=== PATIENT | male | born 1985 | race Caucasian/White ===

== ENCOUNTER 2016-08-13 11:19 | Emergency (ER) | payer SELFPAY ==
[~2016-08-13] VITALS: Ht 182.9 cm; Wt 89.8 kg
[~2016-08-13 11:19] MED LIST: ALBU0.0965 INH; METF100028 PO; SITA25TA3 PO
[2016-08-13 11:21] VITALS: BP 140/88
[2016-08-13] MEDS ORDERED: LOSA50TA1 PO (11:33)
--- NOTE | 2016-08-13 11:45 | NUR ---
URINE COLLECTED IN TRIAGE.
--- NOTE | 2016-08-13 11:52 | NUR ---
Patient ambulated to bed 04.
[2016-08-13] MEDS ORDERED: NACL 0.9% 1,000 ML IV ONE (12:05)
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
--- NOTE | 2016-08-13 12:20 | NUR ---
Dr. Shah evaluating patient at bedside.
[2016-08-13] MEDS ORDERED: KETOROLAC 30 MG/ML VIAL IVP ONE (12:30)
[2016-08-13 12:31] LABS: HEMATOCRIT 46.6 % (36-52); HEMOGLOBIN 15.5 g/dL (12.0-18.0); MEAN CORPUSCULAR HEMOGLOBIN 30 pg (27-31); MEAN CORPUSCULAR HGB CONC 33 g/dL (33-37); MEAN CORPUSCULAR VOLUME 91 fL (80-94); PLATELET COUNT (AUTO) 395 K/uL (140-450); RED CELL DISTRIBUTION WIDTH 12.1 % (11.6-13.7); WHITE BLOOD COUNT (AUTO) 7.8 K/uL (4.8-10.8)
[2016-08-13 12:34] LABS: APPEARANCE,URINE CLEAR (CLEAR); BILIRUBIN,URINE 2+ (NEGATIVE); BLOOD, URINE NEGATIVE (NEGATIVE); COLOR,URINE YELLOW (YELLOW); LEUKOCYTE ESTERASE ,URINE NEGATIVE (NEGATIVE); NITRITE, URINE NEGATIVE (NEGATIVE); PROTEIN,URINE NEGATIVE (NEGATIVE); UGLUCOSE 3+ (NEGATIVE)
[2016-08-13 12:35] LABS: ANION GAP 12.5 (8-16); CALCIUM 8.2 mg/dL (8.5-10.1); CARBON DIOXIDE 28.2 mmol/L (21-32); CREATININE 0.8 mg/dL (0.7-1.3); POTASSIUM 3.7 mmol/L (3.5-5.1)
--- NOTE | 2016-08-13 12:40 | NUR ---
AAO PT TAKEN TO CT FOR THE HEAD VIA WHEEL CHAIR BY INSTRUCTOR KNITTING
[2016-08-13 12:41] LABS: ALBUMIN 3.9 g/dL (3.4-5.0); TOTAL BILIRUBIN 0.5 mg/dL (0.0-1.0); TOTAL PROTEIN, SERUM 7.3 g/dL (6.4-8.2)
[2016-08-13 12:42] LABS: LYMPHOCYTES % (MANUAL) 27 % (20-46); MONOCYTES % (MANUAL) 5 % (5-12); NEUTROPHILS % (MANUAL) 68 (43-65)
[2016-08-13 12:43] LABS: PLATELET ESTIMATE ADEQUATE
--- NOTE | 2016-08-13 12:48 | NUR ---
Patient back from CT via wheelchair per tech.
[2016-08-13 12:59] LABS: BACTERIA,URINE None Seen /HPF (None Seen); ICTOTEST NEGATIVE (NEGATIVE); RBC,URINE NONE SEEN /HPF (0-5); SQUAMOUS EPITHELIAL CELL,UR 0-3 (FEW) /LPF (0-3 (FEW)); WBC,URINE NONE SEEN /HPF (0-5)
[2016-08-13 14:05] VITALS: BP 125/71
== END 2016-08-13 14:05 | disposition home or self-care (01) ==
LOC: MED 11:19
DX: S00.93XA Contusion of unspecified part of head, initial encounter (principal); T14.8 Other injury of unspecified body region; E11.9 Type 2 diabetes mellitus without complications; R03.0 Elevated blood-pressure reading, without diagnosis of hypertension; V43.52XA Car driver injured in collision with other type car in traffic accident, initial encounter; Y93.I9 Activity, other involving external motion; Y92.488 Other paved roadways as the place of occurrence of the external cause; Y99.8 Other external cause status
CPT/HCPCS: 36415; 70450; 80053; 81001; 82948; 85025; 96361; 96374; 99285; J1885; J7030

== ENCOUNTER 2018-05-21 04:35 | Emergency (ER) | payer OTHER ==
[~2018-05-21] VITALS: Ht 182.9 cm; Wt 87.1 kg
[~2018-05-21 04:35] MED LIST changes: +LOSA50TA1 PO
[2018-05-21 04:40] VITALS: BP 124/77
--- NOTE | 2018-05-21 04:40 | NUR ---
TO BED # 04 AMBULATORY
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
[2018-05-21] MEDS ORDERED: ACETAMINOPHEN 325 MG TAB PO ONE (05:10)
[2018-05-21] MEDS ORDERED: KETOROLAC 30 MG/ML VIAL IM ONE (05:10)
--- NOTE | 2018-05-21 05:38 | NUR ---
PT RETURNED FROM CT.
[2018-05-21 06:04] VITALS: BP 110/76
--- NOTE | 2018-05-21 06:04 | NUR ---
Patient discharged with v/s stable. Written and verbal after care instructions given and explained. Patient alert, oriented and verbalized understanding of instructions. Ambulatory with steady gait. All questions addressed prior to discharge. ID band removed. Patient advised to follow up with PMD. Rx of Motrin and Methocarbamol given. Patient educated on indication of medication including possible reaction and side effects. Opportunity to ask questions provided and answered.
== END 2018-05-21 06:04 | disposition home or self-care (01) ==
LOC: MED 04:35
DX: M54.12 Radiculopathy, cervical region (principal); M25.511 Pain in right shoulder; J45.909 Unspecified asthma, uncomplicated; E11.9 Type 2 diabetes mellitus without complications; Z79.84 Long term (current) use of oral hypoglycemic drugs; Z79.899 Other long term (current) drug therapy
CPT/HCPCS: 72125; 73030; 93005; 96372; 99284; J1885

== ENCOUNTER 2018-10-22 10:51 | Emergency (ER) | payer OTHER ==
[~2018-10-22] VITALS: Ht 180.3 cm; Wt 90.7 kg
[2018-10-22 10:52] VITALS: BP 136/97
--- NOTE | 2018-10-22 10:52 | NUR ---
PT PLACED IN CHAIR D
[2018-10-22] MEDS ORDERED: IBUPROFEN 800 MG TAB PO ONE (11:10)
--- NOTE | 2018-10-22 11:16 | NUR ---
PT TAKEN FOR XRAY.
--- NOTE | 2018-10-22 11:19 | NUR ---
PT BACK FROM XRAY.
[2018-10-22 11:27] VITALS: BP 136/97
== END 2018-10-22 11:27 ==
LOC: MED 10:51
DX: R07.89 Other chest pain (principal); J45.909 Unspecified asthma, uncomplicated; E11.9 Type 2 diabetes mellitus without complications; Z79.899 Other long term (current) drug therapy; Z79.51 Long term (current) use of inhaled steroids; V89.2XXA Person injured in unspecified motor-vehicle accident, traffic, initial encounter; Y93.89 Activity, other specified; Y92.410 Unspecified street and highway as the place of occurrence of the external cause; Y99.8 Other external cause status
CPT/HCPCS: 71045; 99283

== ENCOUNTER 2018-12-25 12:25 | Observation (INO) | payer OTHER ==
[~2018-12-25] VITALS: Ht 182.9 cm; Wt 80.7 kg
[2018-12-25 12:57] VITALS: BP 139/77
--- NOTE | 2018-12-25 13:00 | NUR ---
PT TAKEN TO BED 2.
--- NOTE | 2018-12-25 13:19 | NUR ---
33/M C/O LT CHEST PAIN X2 DAYS, WORSE TODAY AND CONSTANT. DENIES SUBSTANCE USE. STATES HAS HAD SIMILAR CP IN THE PAST BUT NEVER CONSTANT AND THIS SEVERE. STATES N/V AND SOB. 98% RA; PLACED ON 2L NC FOR C/O SOB. RRR. LUNGS CTAB. HX DENIES
--- NOTE | 2018-12-25 13:37 | NUR ---
PT STATES DO NOT GIVE INFORMATION TO EX- OVER THE PHONE. STATES HE HAS BEEN HAVING PROBLEMS WITH HER AND IT HAS BEEN TRIGGERING ANXIETY AND CP SYMPTOMS.
--- NOTE | 2018-12-25 13:57 | NUR ---
WINE MASTER AT BEDSIDE.
--- NOTE | 2018-12-25 14:00 | NUR ---
PT STATES HIS PAIN HAS DECREASED. STATES HE FEELS BETTER WITH THE O2 NC.
[2018-12-25] MEDS ORDERED: NACL 0.9% 1,000 ML IV SCH (14:23)
[2018-12-25] MEDS ORDERED: methylPREDNISolone SS 125 MG/2 ML VIAL IVP ONE (14:25)
[2018-12-25] MEDS ORDERED: AZITHROMYCIN 500 MG in DEXTROSE 5% 250 ML IV ONE (14:25)
[2018-12-25] MEDS ORDERED: ALBUTEROL SULFATE/IPRATROPIU 3 ML SOL IH ONE (14:25)
[2018-12-25] MEDS ORDERED: diphenhydrAMINE 50 MG/ML VIAL IVP ONE (14:25)
--- NOTE | 2018-12-25 14:39 | NUR ---
RT AT BEDSIDE
[2018-12-25 14:56] LABS: MAGNESIUM 2.2 mg/dL (1.8-2.4)
[2018-12-25] MEDS ORDERED: AZITHROMYCIN 500 MG INJ VIAL IV ONE (14:58)
[2018-12-25 15:03] LABS: PROTHROMBIN TIME 9.4 secs (10.8-13.4)
--- NOTE | 2018-12-25 15:17 | NUR ---
REMINDED PT THAT WE STILL NEED URINE SAMPLE. PT VERBALIZED UNDERSTANDING AND STATED HE WOULD TRY.
[2018-12-25 15:18] LABS: BASOPHILS % (AUTO) 0.4 % (0.0-2.0); EOSINOPHILS % (AUTO) 0.2 % (0.0-4.0); HEMATOCRIT 44.7 % (36-52); HEMOGLOBIN 14.9 g/dL (12.0-18.0); LYMPHOCYTES # (AUTO) 1.8 K/uL (2.0-11.5); LYMPHOCYTES % (AUTO) 18.7 % (20.5-51.1); MEAN CORPUSCULAR HEMOGLOBIN 31 pg (27-31); MEAN CORPUSCULAR HGB CONC 33 g/dL (33-37); MEAN CORPUSCULAR VOLUME 92.7 fL (80-94); MONOCYTES # (AUTO) 0.7 K/uL (0.8-1.0); MONOCYTES % (AUTO) 7.3 % (1.7-9.3); NEUTROPHILS % (AUTO) 73.4 % (42.2-75.2); PLATELET COUNT (AUTO) 427 K/uL (140-450); RED BLOOD CELL COUNT(AUTO) 4.82 MIL/uL (4.20-6.10); WHITE BLOOD COUNT (AUTO) 9.5 K/uL (4.8-10.8)
[2018-12-25 15:29] LABS: PROTHROMBIN TIME 9.5 secs (10.8-13.4)
[2018-12-25 15:39] LABS: ANION GAP 11.7 (8-16); CARBON DIOXIDE 28.1 mmol/L (21-32); CREATININE 0.9 mg/dL (0.7-1.3); POTASSIUM 3.8 mmol/L (3.5-5.1)
[2018-12-25 15:52] LABS: ALBUMIN 3.7 g/dL (3.4-5.0)
--- NOTE | 2018-12-25 16:13 | NUR ---
PT STATES STILL UNABLE TO GIVE URINE SAMPLE BUT WILL CONTINUE TO TRY.
--- NOTE | 2018-12-25 16:22 | NUR ---
PT STATES HE STILL CAN'T PROVIDE URINE SAMPLE AT THIS TIME. REFUSED CATHETERIZATION FOR URINE. STATES HE NEEDS SOME MORE TIME.
--- NOTE | 2018-12-25 16:23 | NUR ---
SITTING UP IN BED, NAD, NOTED TO BE SCROLLING THROUGH CELLPHONE.
--- NOTE | 2018-12-25 17:00 | NUR ---
OBTAINED VOIDED URINE SAMPLE FROM PT.
[2018-12-25 17:03] LABS: TOTAL BILIRUBIN 0.8 mg/dL (0.0-1.0)
--- NOTE | 2018-12-25 18:08 | NUR ---
Patient will be admitted to care of DR. NICOLE. Admited to TELE. Will go to room 126B. Belongings list completed. Report to DAYANA HUA.
[2018-12-25 18:29] LABS: BARBITURATE, URINE NEGATIVE ng/ml (NEG <=200)
[2018-12-25 18:30] LABS: BENZODIAZEPINE, URINE NEGATIVE ng/mL (NEG <=200); CANNABINOID, URINE NEGATIVE ng/mL (NEG <=50); COCAINE, URINE NEGATIVE ng/mL (NEG <=300); OPIATE, URINE NEGATIVE ng/mL (NEG <=2000); PHENCYCLIDINE SCREEN,URINE NEGATIVE ng/mL (NEG <=25)
--- NOTE | 2018-12-25 18:37 | NUR ---
VITALS BP 124/78, HR 84, O2SAT 100% RA, RR 14, DENIES PAIN, PAGED DR NICOLE CONCRETE HOPPER OPERATOR FOR DR TEJADA FOR ORDERS.
[2018-12-25] MEDS ORDERED: ALBUTEROL SULFATE/IPRATROPIU 3 ML SOL IH PRN (18:45)
[2018-12-25 19:30] VITALS: BP 128/78
--- NOTE | 2018-12-25 19:30 | NUR ---
RECEIVED BEDSIDE REPORT FROM LI RN, PT STABLE NO DISTRESS NOTED, IV TO L FA 20G, PATENT, INTACT, SL, PT ON ROOM AIR, NO SOB NOTED, PT STATED HAVING TOLERABLE CHEST PAIN AT THIS MOMENT, INITIAL ASSESSMENT DONE, ALL SAFETY PRECAUTION MET, CALL LIGHT WITHIN REACH, WILL CONTINUE TO MONITOR.
--- NOTE | 2018-12-25 21:00 | NUR ---
PT C/O PAIN /10 ON THE CHEST THAT RADIATES TO L FINGERS FEELING TINGLING, NOTIFIED DR. BONNIE DR. STATED TO ORDER ASA 81MG DAILY AND TO GIVE ONE DOSE NOW, AND TO ORDER NORCO 5/325MG Q6H PRN PAIN. WILL PUT IN ORDERS AND CONTINUE WITH ORDERS.
--- NOTE | 2018-12-25 21:02 | NUR ---
PT RECEIVED ON RA WITH SP02 97% AND CLEAR BREATH SOUNDS. NO RESPIRATORY DISTRESS NOTED. PRN TX NOT GIVEN. WILL CONTINUE TO MONITOR PT
[2018-12-25] MEDS ORDERED: ECOTRIN 81 MG TABEC PO ONE (21:20)
[2018-12-25] MEDS: HYDROcodone/APAP 5/325 MG 1 TAB TAB PO PRN (22:10)
--- NOTE | 2018-12-25 22:10 | NUR ---
MEDICATION ADMINISTERED, PT TOLERATED WELL, NO DISTRESS NOTED, CALL LIGHT WITHIN REACH, WILL CONTINUE TO MONITOR.
[2018-12-26] VITALS: BP 119/65
--- NOTE | 2018-12-26 00:17 | NUR ---
PT SLEEPING, NO DISTRESS NOTED, V/S TAKEN, WNL, CALL LIGHT WITHIN REACH, WILL CONTINUE TO MONITOR.
[2018-12-26 04:00] VITALS: BP 111/61
--- NOTE | 2018-12-26 04:16 | NUR ---
CHECKED ON PT, PT SLEEPING, V/S TAKEN, WNL, CALL LIGHT WITHIN REACH, WILL CONTINUE TO MONITOR.
[2018-12-26 06:47] LABS: BASOPHILS % (AUTO) 0.1 % (0.0-2.0); HEMOGLOBIN 15.9 g/dL (12.0-18.0); LYMPHOCYTES # (AUTO) 1.3 K/uL (2.0-11.5); LYMPHOCYTES % (AUTO) 10.3 % (20.5-51.1); MEAN CORPUSCULAR HEMOGLOBIN 31 pg (27-31); MEAN CORPUSCULAR HGB CONC 33 g/dL (33-37); MONOCYTES # (AUTO) 0.6 K/uL (0.8-1.0); MONOCYTES % (AUTO) 4.9 % (1.7-9.3); NEUTROPHILS # (AUTO) 10.6 K/uL (1.8-7.7); NEUTROPHILS % (AUTO) 84.7 % (42.2-75.2); PLATELET COUNT (AUTO) 450 K/uL (140-450); RED BLOOD CELL COUNT(AUTO) 5.16 MIL/uL (4.20-6.10); WHITE BLOOD COUNT (AUTO) 12.5 K/uL (4.8-10.8)
[2018-12-26 06:55] LABS: ANION GAP 12.5 (8-16); CARBON DIOXIDE 26.6 mmol/L (21-32); CREATININE 0.7 mg/dL (0.7-1.3); POTASSIUM 5.1 mmol/L (3.5-5.1)
--- NOTE | 2018-12-26 07:05 | NUR ---
RECEIVE REPORT FROM PM NURSE, PT WAS ASLEEP BUT AWAKES WHEN NAME IS USED. PT IS STABLE WITHOUT SIGNS OF DISTRESS.
--- NOTE | 2018-12-26 07:16 | NUR ---
ENDORSED PT TO DAY SHIFT NURSE JERRY RN, PT STABLE, NO DISTRESS NOTED, CALL LIGHT WITHIN REACH.
[2018-12-26 08:00] VITALS: BP 115/75
[2018-12-26] MEDS: HYDROcodone/APAP 5/325 MG 1 TAB TAB PO PRN ×2 (08:04→20:39)
[2018-12-26] MEDS: ECOTRIN 81 MG TABEC PO SCH (08:05)
--- NOTE | 2018-12-26 09:18 | NUR ---
PT ON HIS CELLPHONE. PT WAS INFORMED ABOUT AGE LIMIT FOR HIS CHILDREN VISITING HIM IN THE HOSPITAL. PT REASSESSED AD PT STATES PAIN IS "OKAY". SALINE LOCK. PT RESPIRATION ARE EVEN AND UNLABORED.
--- NOTE | 2018-12-26 11:50 | NUR ---
AT BEDSIDE WITH PT, PT'S FAMILY AT BEDSIDE. PT IN BED, IV SALINE, PT IS WITHOUT SIGNS OF DISTRESS
[2018-12-26 12:00] VITALS: BP 115/68
[2018-12-26] MEDS ORDERED: DEXTROSE 50% 50 ML SYR IVP PRN (12:05)
[2018-12-26] MEDS ORDERED: ALPRAZolam 0.5 MG TAB PO SCH (13:02)
--- NOTE | 2018-12-26 13:56 | NUR ---
PT IS ASLEEP IN BED. RESPIRATION ARE EVEN AND UNLABORED. CALL LIGHT WITHIN REACH. BED LOW POSITION.
[2018-12-26 16:00] VITALS: BP 110/64
[2018-12-26] MEDS: BLOOD GLUCOSE MONITORING 1 DEV DEV FS SCH ×2 (16:57→21:35)
[2018-12-26] MEDS: INSULIN LISPRO SLIDING SCALE 100 UNITS/ML VIAL SUBQ PRN ×2 (17:09→21:36)
--- NOTE | 2018-12-26 17:40 | NUR ---
PT IS IN BED. RESPIRATION ARE EVEN AND UNLABORED. FAMILY MEMBER VISITING WITH PT. CALL LIGHT WITHIN REACH.
--- NOTE | 2018-12-26 19:15 | NUR ---
GAVE REPORT TO PM NURSE FOR CONTINUATION OF CARE. PT IS STABLE, RESPIRATION ARE EVEN AND UNLABORED. PT'S FAMILY MEMBER IS AT THE BEDSIDE.
--- NOTE | 2018-12-26 19:17 | NUR ---
RECEIVED BEDSIDE REPORT FROM AM SHIFT NURSE. PT STABLE NO DISTRESS NOTED, IV TO L FA 20G, PATENT, INTACT, SL, PT ON ROOM AIR, NO SOB NOTED, PT STATED HAVING 5/10 CHEST PAIN AT THIS MOMENT. WILL MEDICATE. ALL SAFETY PRECAUTION MET, CALL LIGHT WITHIN REACH, WILL CONTINUE TO MONITOR.
[2018-12-26 20:00] VITALS: BP 118/68
--- NOTE | 2018-12-26 20:35 | NUR ---
PT RECEIVED ON RA WITH SP02 98% AND CLEAR BREATH SOUNDS. NO RESPIRATORY DISTRESS NOTED. PRN TX NOT GIVEN. PT INFORMED TO CALL RN IF EXPERIENCING SOB. WILL CONTINUE TO MONITOR PT
--- NOTE | 2018-12-26 21:13 | NUR ---
PT NO COMPLAINTS AT THIS TIME, SLEEPING. NO SIGNS OF RESPIRATORY DISTRESS. NO COMPLAINTS OF PAIN. WILL CONTINUE TO MONITOR.
--- NOTE | 2018-12-26 22:45 | NUR ---
PT WENT TO BATHROOM STEADY IN GAIT, WENT BACK TO SLEEP
[2018-12-27] VITALS: BP 118/76
[2018-12-27] MEDS ORDERED: INFLUENZA VACCINE QUAD 0.5 ML SYR IMVAC PRN (00:10)
--- NOTE | 2018-12-27 02:53 | NUR ---
PT SLEEPING WELL, NOT IN RESPIRATORY DISTRESS. NO COMPLAINTS AT THIS TIMME. WILL CONTINUE TO MONITOR
[2018-12-27 04:00] VITALS: BP 115/75
--- NOTE | 2018-12-27 04:30 | NUR ---
PT STILL SLEEPING, BUT AROUSABLE BY VERBAL STIMULI. NOT IN RESPIRATORY DISTRESS, PT HAS NO COMPLAINTS
[2018-12-27] MEDS: BLOOD GLUCOSE MONITORING 1 DEV DEV FS SCH ×2 (06:24→11:44)
--- NOTE | 2018-12-27 06:24 | NUR ---
TAKEN BLOOD SUGAR GIVEN INSULIN PROTOCOL PER SLIDING SCALE
[2018-12-27] MEDS: INSULIN LISPRO SLIDING SCALE 100 UNITS/ML VIAL SUBQ PRN ×2 (06:27→12:15)
--- NOTE | 2018-12-27 07:20 | NUR ---
PT SLEEPING, NO COMPLAINTS AT THIS TIME. PT IN STABLE CONDITION. WILL ENDORSE TO NEXT SHIFT
--- NOTE | 2018-12-27 07:30 | NUR ---
RECEIVED REPORT FROM PUTTY AND PATCH WORKER NURSE. PATIENT IS LYING IN BED, AWAKE AND VERBALLY RESPONSIVE. RESPIRATION EVEN AND UNLABORED. IV INTACT AND PATENT TO LFA WITH SALINE LOCK. BED IN LOW POSITION. WILL CONTINUE TO MONITOR. CALL LIGHT WITHIN REACH.
[2018-12-27 08:00] VITALS: BP 119/75
[2018-12-27] MEDS: ECOTRIN 81 MG TABEC PO SCH (08:29)
[2018-12-27] MEDS: HYDROcodone/APAP 5/325 MG 1 TAB TAB PO PRN ×2 (08:30→15:03)
--- NOTE | 2018-12-27 08:30 | NUR ---
PT IS SITTING UP IN BED, EATING HIS BREAKFAST. NO S/S OF DISTRESS. AM MEDICATIONS GIVEN. IV TO LEFT FOREARM INTACT AND PATENT WITH SALINE LOCK. CALL LIGHT WITHIN REACH.
[2018-12-27] MEDS ORDERED: ALPRAZolam 0.5 MG TAB PO SCH (09:00)
--- NOTE | 2018-12-27 10:22 | NUR ---
PATIENT IS IN BED, ALERT AND VERBALLY RESPONSIVE. DENIES PAIN OR DISCOMFORT AT THIS TIME. CALL LIGHT WITHIN REACH. NO S/S OF DISTRESS NOTED.
--- NOTE | 2018-12-27 10:53 | NUR ---
Plunger Shovel Operator Note: Basic Screen: Yes High Risk DC Screen [place]: TAMAR Bowen Relationship: MOTHER Pre-Admission Living Arrangements: Lives with Other Prior ADL Independent Current Home Health Name/Tel: N/A Current DME/02 Name/Tel: N/A Current Hospice Name/Tel: N/A Current Dialysis Name/Tel: N/A Healthcare Decision Maker: Patient Advance Directive No - REFUSED Physician Orders for Life Sustaining Treatment Form No Information Taught: Advance Directive Community Resources Person Taught: Patient Teaching Tools: Verbal Factors Affecting Learning: None Participation Level: Refused Evaluation: Verbalizes Understanding Needs Additional Education: No Discipline: Case Mgt/Social Svcs Tentative Discharge Plan/Destination: No Needs Identified Will require assistance post discharge: No Referred to [employer] Head: No Tentative Discharge Plan Summary: Patient is a 33 year old male admitted for chest pain and asthma. Patient has no significant PMHX. Patient was admitted from home. SW verified demographics with patient. Patient stated that he last saw his PCP, Dr. Pancho Tuttle, on 12/26/2018. SW offered education on advanced directive but patient refused. Patient reported no history of mental health, no SI/HI, and no substance abuse history. Patient's tentative plan after discharge is to return home. No further needs identified. Signature: MELANIA Bowens Date: Dec 27, 2018 Time: 10:52
[2018-12-27] MEDS ORDERED: ALBU0.0912 IH (11:14)
[2018-12-27 12:00] VITALS: BP 125/60
--- NOTE | 2018-12-27 12:00 | NUR ---
PATIENT IS EATING LUNCH. ALERT AND ORIENTED X4. DENIES PAIN OR DISCOMFORT. NO S/S OF DISTRESS NOTED.
--- NOTE | 2018-12-27 14:00 | NUR ---
PATIENT IS ALERT AND ORIENTED X4. NO S/S OF DISTRESS NOTED. PATIENT IS TO BE DISCHARGED TODAY.
--- NOTE | 2018-12-27 14:56 | NUR ---
PCP Appointment: JOANA contacted Roberta from Dr. Pancho Tuttle's office. SW scheduled appointment for patient at 8:30AM on 12/31/2018 @ [id number] [address] [place] [id number]. Appointment slip was left in patient's chart to be given at discharge. No further needs identified.
--- NOTE | 2018-12-27 16:00 | NUR ---
PT DISCHARGED WITH FAMILY TO HOME VIA PRIVATE VEHICLE. ALL DISCHARGE INSTRUCTIONS GIVEN AND ALL BELONGINGS GIVEN WITH PATIENT. IV CANNULA REMOVED. BLEEDING CONTROLLED. ID BAND REMOVED. CALLED TO PATIENT IN REGARDS TO FOLLOW UP APPT. FOR 01/03/19 @ 1952 WITH PERCY PERRY AND DR. PREMA MORTON ON 12/31/18 @ 0830AM. PT VERBALIZED UNDERSTANDING.
--- NOTE | 2018-12-28 13:11 | NUR ---
Late entry. Confirmed with RN that 1000ml 0.9 NS IV completed at 1700. Zithromax IVPB completed at 1600
== END 2018-12-27 16:00 | disposition home or self-care (01) ==
LOC: MED 12:25 → INTOOBSV 17:52 → MMU 17:52
PROVIDERS: ADMIT Internal Medicine Pulmonary Disease; ATTEND Internal Medicine Pulmonary Disease
DX: J98.01 Acute bronchospasm (principal); F41.9 Anxiety disorder, unspecified; F41.0 Panic disorder [episodic paroxysmal anxiety]; E11.9 Type 2 diabetes mellitus without complications; R07.9 Chest pain, unspecified; F17.210 Nicotine dependence, cigarettes, uncomplicated; F12.90 Cannabis use, unspecified, uncomplicated; J44.1 Chronic obstructive pulmonary disease with (acute) exacerbation; Z79.899 Other long term (current) drug therapy
CPT/HCPCS: 36415; 36600; 71045; 80048; 80053; 80305; 82550; 82803; 82948; 83036; 83605; 83735; 83880; 84484; 85025; 85610; 85730; 86140; 87040; 87081; 87086; 90686; 93005; 94640; 94760; 96365; 96372; 96375; 99285; G0378; G0482; J0456; J1200; J1815; J2930; J7620; Q0092

== ENCOUNTER 2019-09-07 23:59 | Emergency (ER) | payer SELFPAY ==
[~2019-09-07] VITALS: Ht 182.9 cm; Wt 83.0 kg
[~2019-09-07 23:59] MED LIST changes: +ALBU0.0912 IH; -ALBU0.0965 INH; -LOSA50TA1 PO; -METF100028 PO; -SITA25TA3 PO
[2019-09-08 00:12] VITALS: BP 148/96
--- NOTE | 2019-09-08 00:34 | NUR ---
Dr. Easley examining patient.
--- NOTE | 2019-09-08 00:38 | NUR ---
33 YO M BIB SELF FOR C/C OF 10/10 R LEG PAIN POST BUG BITE 2 DAYS AGO. PT HAS A LARGE, WARM TO TOUCH RED INFLAMMED AREA ON R CALF. PT STATES IT IS VERY PAINFUL TO WALK AND IBUPROFEN HAS NOT RELIVED THE PAIN. PT STATES HE HAS BEEN TAKING TETRACYCLINE WITHOUT RELIEF OF SYMPTOMS. PEDAL PULSES ARE EQUAL AND REGULAR. DENIES FEVER, CHILLS, BODY ACHES. NKA NO MED HX RX: TETRACYCLINE
[2019-09-08] MEDS ORDERED: cephALEXin 500 MG CAP PO STA (00:42)
[2019-09-08] MEDS ORDERED: traMADol 50 MG TAB PO STA (00:42)
[2019-09-08] MEDS ORDERED: SULFAMETH/TRIMETH DS 800/160MG 1 TAB PO STA (00:42)
--- NOTE | 2019-09-08 00:45 | NUR ---
ERMD AT BEDSIDE PERFORMING ULTRASOUND
[2019-09-08 01:10] VITALS: BP 148/96
--- NOTE | 2019-09-08 01:10 | NUR ---
Patient discharged with v/s stable. Written and verbal after care instructions given and explained. Patient alert, oriented and verbalized understanding of instructions. Ambulatory with steady gait. All questions addressed prior to discharge. ID band removed. Patient advised to follow up with PMD. Rx of BACTRIM, KEFLEX, TRAMADOL, IBUPROFEN given. Patient educated on indication of medication including possible reaction and side effects. Opportunity to ask questions provided and answered.
== END 2019-09-08 01:10 | disposition home or self-care (01) ==
LOC: MED 23:59
DX: S80.861A Insect bite (nonvenomous), right lower leg, initial encounter (principal); L03.115 Cellulitis of right lower limb; Z79.899 Other long term (current) drug therapy; W57.XXXA Bitten or stung by nonvenomous insect and other nonvenomous arthropods, initial encounter; Y93.89 Activity, other specified; Y92.89 Other specified places as the place of occurrence of the external cause; Y99.8 Other external cause status
CPT/HCPCS: 99284

== ENCOUNTER 2019-09-14 07:19 | Emergency (ER) | payer MEDICAID ==
[~2019-09-14] VITALS: Ht 182.9 cm; Wt 79.4 kg
[2019-09-14 07:20] VITALS: BP 154/84
[2019-09-14] MEDS ORDERED: LIDOCAINE MPF 1% 10 MG/ML VIAL INJ ONE (07:40)
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
[2019-09-14 08:38] VITALS: BP 144/80
--- NOTE | 2019-09-14 08:38 | NUR ---
Patient discharged with v/s stable. Written and verbal after care instructions given and explained. Patient verbalized understanding. Ambulatory with steady gait. All questions addressed prior to discharge. Advised to follow up with PMD.
== END 2019-09-14 08:38 | disposition home or self-care (01) ==
LOC: MED 07:19
DX: L02.415 Cutaneous abscess of right lower limb (principal); Z79.899 Other long term (current) drug therapy
CPT/HCPCS: 10060; 99283; J2001